=== PATIENT | female | born 1930 | race Caucasian/White ===

== ENCOUNTER 2018-04-01 06:45 | Emergency (ER) | payer MEDICARE | END 2018-04-01 08:40 | disposition home or self-care (01) | LOC: ER 06:45 ==

== ENCOUNTER → 2019-07-23 | Outpatient (CLI) | payer MEDICARE ==
[~2019-07-23] MED LIST: ACET-1697 PO; AMLO5TAB2 PO; ASPI-266 PO; CA C1TAB26 PO; CEFU500T5 PO; CEFU800T34; CLC500CT PO; CLOP75TA28 PO; CLPD75T PO; FAMO-119 PO; FAMO20TA73 PO; FURO40TA4 PO; KCL10CCR PO; LSNP20T PO; METO100T2 PO; MULT-856 PO; PROP160C2 PO; RECLAST; RECLAST IV; SIME80TA PO; TUMS PO; WARF2TAB PO; WARF2TAB6 PO; WRF2T PO
--- NOTE | 2019-07-23 12:42 | Diagnostic Imaging Report ---
PROCEDURE: US Thyroid. TECHNIQUE: Multiple real-time grayscale images were obtained of the thyroid in various projections. INDICATION: Left thyroid nodule. COMPARISON: No previous exam for comparison. FINDINGS: The right lobe measures 4.6 x 1.3 x 1.9 cm. There is a 4 x 4 mm hypoechoic solid nodule in the midportion. The left lobe measures 5 x 1.8 x 1.8 cm. There is a solid nodule which is well encapsulated in the lower pole with isoechoic and hypoechoic components. This measures 1.9 x 1.7 x 1.4 cm. This does show vascularity about the rim as well as scattered vascularity within the nodule with Doppler sampling. The isthmus measures 2 mm. No calcifications are seen. IMPRESSION: 1. Solid nodule in left lower pole of left lobe as described measuring 1.9 cm in greatest dimension. No previous exam for comparison. Depending on clinical concerns, either 6-month or 12-month ultrasound follow-up versus fine-needle aspiration. TI-RADS 3. Dictated by: Dictated on workstation # [id number]
== END ==
LOC: RAD 09:21
PROVIDERS: ATTEND Internal Medicine
DX: E04.1 Nontoxic single thyroid nodule (principal)
CPT/HCPCS: 76536

== ENCOUNTER → 2020-12-10 | Outpatient (CLI) | payer MEDICARE ==
--- NOTE | 2020-12-10 13:29 | Diagnostic Imaging Report ---
PROCEDURE: US Thyroid. TECHNIQUE: Multiple real-time grayscale images were obtained of the thyroid in various projections. INDICATION: Follow-up left thyroid nodule. COMPARISON: 07/23/2019. FINDINGS: Both thyroid lobes demonstrate smooth and homogenous background echotexture. Color flow Doppler demonstrates normal and symmetric vascularity bilaterally. The right lobe measures 4.8 cm in length , 1.3 cm AP, and 1.4 cm transverse. The left lobe measures 4.6 cm in length , 2.5 cm AP, and 2.0 cm transverse. The isthmus measures 0.3 cm. A solid isoechoic nodule is again seen in the inferior pole of the left lobe of the thyroid measuring 2.1 x 1.5 x 1.6 cm. There is internal vascularity within this nodule. No new nodules are seen within the thyroid. Impression: 1. Slight increase in size in the solid nodule within the left lobe of the thyroid. Based on size criteria, thyroid FNA is recommended; however, 12 month follow up with thyroid ultrasound could also be considered. 2. No new nodules are seen within the thyroid. Dictated by: Dictated on workstation # [id number]
== END ==
LOC: RAD 10:00
PROVIDERS: ATTEND Internal Medicine
DX: E04.1 Nontoxic single thyroid nodule (principal)
CPT/HCPCS: 76536

== ENCOUNTER → 2020-12-31 | Outpatient (CLI) | payer MEDICARE ==
[~2020-12-31] VITALS: Ht 162.6 cm; Wt 63.6 kg
[~2020-12-31] MED LIST changes: +LIDOCAINE 1% INJ 20 ML 20 ML VIAL INJ ONE
--- NOTE | 2020-12-31 12:32 | Diagnostic Imaging Report ---
INDICATION: Left lobe thyroid nodule. Patient presents for biopsy. Patient is brought to the procedure room placed on the table in the supine position. Ultrasound imaging of the left neck was performed to evaluate appropriate entry site. Left neck was then prepped and draped in usual sterile fashion. Small amount 1% lidocaine was utilized for local anesthesia. A total of 4 passes were made into the solid dominant mass left lobe of thyroid utilizing 25-gauge needles and fine-needle aspiration technique. A single pass was made with a Rotex needle and Rotex biopsy was performed. Dowell were removed and hemostasis was obtained. Patient tolerated the procedure well and left the department in stable condition. IMPRESSION: Successful ultrasound-guided fine-needle aspiration and Rotex biopsy of left lobe thyroid mass. Pathology results are currently pending. Dictated by: Dictated on workstation # [id number]
== END ==
LOC: RAD 11:00
PROVIDERS: ATTEND Otolaryngology Otolaryngology/Facial Plastic Surgery
DX: E04.1 Nontoxic single thyroid nodule (principal)
CPT/HCPCS: 10005

== ENCOUNTER → 2021-06-17 | Outpatient (CLI) | payer MEDICARE ==
[~2021-06-17] MED LIST changes: -LIDOCAINE 1% INJ 20 ML 20 ML VIAL INJ ONE
--- NOTE | 2021-06-17 08:55 | Diagnostic Imaging Report ---
EXAMINATION: Chest 2 view HISTORY: Cough, dyspnea, wheezing. COMPARISON: 04/01/2018 FINDINGS: Heart size and pulmonary vasculature are stable. Stable minimal right pleural effusion. No consolidation or pneumothorax. Degenerative changes of the thoracic spine. Osseous structures are otherwise intact. IMPRESSION: 1. Stable small right pleural effusion. No other acute radiographic abnormality in the chest. Dictated by: Dictated on workstation # [id number]
== END ==
LOC: RAD 08:21
PROVIDERS: ATTEND Nurse Practitioner Family
DX: J90 Pleural effusion, not elsewhere classified (principal)
CPT/HCPCS: 71046

== ENCOUNTER → 2021-07-15 | Outpatient (CLI) | payer MEDICARE ==
--- NOTE | 2021-07-15 17:10 | Diagnostic Imaging Report ---
PROCEDURE: US Thyroid. TECHNIQUE: Multiple real-time grayscale images were obtained of the thyroid in various projections. INDICATION: Follow-up of left lobe thyroid nodule. COMPARISON with ultrasound from 12/10/2020. FINDINGS: The right lobe measures 3.5 x 1.2 x 1.2 cm. The left lobe measures 4.3 x 1.8 x 1.8 cm. There is a solid slightly hypoechoic well-circumscribed nodule measuring 1.9 x 1.4 cm. There is no associated calcification. The isthmus appears normal. IMPRESSION: Solid oval hypoechoic nodule without calcification within the left lobe inferiorly. This is stable from previous exam. Would recommend continued annual ultrasound follow-up. TI-RADS 3. Dictated by: Dictated on workstation # [id number]
== END ==
LOC: RAD 12:30
PROVIDERS: ATTEND Otolaryngology Otolaryngology/Facial Plastic Surgery
DX: E04.1 Nontoxic single thyroid nodule (principal)
CPT/HCPCS: 76536

== ENCOUNTER 2022-03-31 07:59 | Emergency (ER) | payer MEDICARE ==
[~2022-03-31] VITALS: Ht 162 cm; Wt 57.0 kg
--- NOTE | 2022-03-31 08:33 | ED Neck-Back Pain/Injury ---
General Chief Complaint: Head/Cervical Problems Stated Complaint: STIFF NECK Nursing Triage Note: PT AMB TO [facility] 6 PT CO OF SEVERE NECK PAIN 10/10 FOR APPROX 9 DAYS, HAS BEEN SEEN BY HER DR. PT HAS HAD INJECTION AND IS TAKING MEDS. PT HAS KYPHOSIS NOTED Source of Information: Patient Exam Limitations: No Limitations History of Present Illness Date Seen by Provider: Mar 31, 2022 Time Seen by Provider: 08:17 Initial Comments Patient is an 89-year-old female who presents to the emergency room with a chief complaint of "stiff neck". She states she changed to a new pillow approximately 10 days ago. She states over the last 9 days she has developed increasingly sore neck, inability to turn her head. She saw the nurse practitioner at her primary care physician's office, Dr. Garcia, she had some "injections" that day that did not really help much and may be gave minimal relief for an hour or 2. She is taken Tylenol. She has used she states, almost every oosw-jfc-eyeqfgk muscle rub imaginable. She was prescribed some tizanidine but she states it makes her feel weak and dizzy like she is about to fall. She denies radiation of the pain into her arms, no numbness, tingling or weakness. She has had no direct trauma. She denies fevers or chills. She states her blood pressure has been "all over the place" due to her pain. She has not been sleeping well. No other complaints of illness or injury. Location: C-Spine Timing/Duration: Other (9 days) Severity: Severe Pain/Injury Location: Neck Radiation: Other (scalp) Method of Injury: Other (new pillow) Modifying Factors: Worse With Movement Associated Symptoms: muscle spasms Allergies and Home Medications Allergies Coded Allergies: promethazine (Unverified Allergy, Mild, NAUSEA, 08/05/14) atenolol (Verified Allergy, Unknown, 04/12/05) Uncoded Allergies: CODIENE (Allergy, Mild, NAUSEA, 08/05/14) Patient Home Medication List Home Medication List Reviewed: Yes Acetaminophen (Acetaminophen) 500 Mg Tablet, 500 MG PO BID PRN for PAIN, (Reported) Entered as Reported by: SANYA BEAN on 08/25/14 0822 Famotidine (Acid Control) 20 Mg Tablet, 20 MG PO BID, (Reported) Entered as Reported by: ANASTACIA ESTEVEZ on 09/22/14 08 Lisinopril (Zestril) 20 Mg Tab, 20 MG PO BID, (Reported) Entered as Reported by: BERONICA ADLER on 04/18/11 1359 Metoprolol Tartrate (Metoprolol Tartrate) 100 Mg Tablet, 100 MG PO BID, (Reported) Entered as Reported by: ANASTACIA ESTEVEZ on 09/22/14 08 Multivits W-Fe,Other Min/Lut (Centrum Silver Ultra Women Tab) 1 Each Tablet, 1 TAB PO DAILY, (Reported) Entered as Reported by: BERONICA ADLER on 04/18/11 1355 Potassium Chloride (Klor-Con 10) 10 Meq Tablet.sa, 10 MEQ PO EVERY OTHER DAY, (Reported) Entered as Reported by: ANASTACIA ESTEVEZ on 09/22/14 08 Warfarin Sod (Coumadin 2 Mg) 2 Mg Tab, 2 MG PO VARGAS,,,SA, (Reported) Entered as Reported by: BERONICA ADLER on 04/18/11 1407 Warfarin Sodium (Warfarin Sodium) 2 Mg Tablet, 3 MG PO MON,WED, FRI, (Reported) Entered as Reported by: ANASTACIA ESTEVEZ on 09/22/14 0821 [Reclast] , IV YEARLY, (Reported) Entered as Reported by: ANASTACIA ESTEVEZ on 09/22/14 0828 [Tums 750MG] , 750 MG PO BID, (Reported) Entered as Reported by: ANASTACIA ESTEVEZ on 08/05/14 0830 Review of Systems Constitutional: see HPI EENTM: no symptoms reported Respiratory: no symptoms reported Cardiovascular: no symptoms reported Gastrointestinal: no symptoms reported Genitourinary: no symptoms reported Musculoskeletal: muscle cramps, neck pain Skin: no symptoms reported All Other Systems Reviewed Negative Unless Noted: Yes Past Sctvsyr-Knivuf-Txlfjw Hx Patient Social History Tobacco Use?: No Substance use?: No Alcohol Use?: No Pt feels they are or have been: No Immunizations Up To Date Influenza Vaccine Up-to-Date: Yes; Up-to-Date First/Initial COVID19 Vaccinat: YES Second COVID19 Vaccination Gilles: YES Past Medical History Surgery/Hospitalization HX: AFIB, HTN, 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 STENT LEGS) Respiratory: No Cardiac: Yes Atrial Fibrillation, Hypertension Neurological: No Gastrointestinal: Yes Diverticulosis Musculoskeletal: No Endocrine: No Cancer: No Psychosocial: No Family Medical History No Pertinent Family Hx Physical Exam Vital Signs Vital Signs - First Documented 03/31/22 08:05 Temp 35.7 Pulse 81 Resp 18 B/P (MAP) 167/108 (127) Pulse Ox 96 Capillary Refill : Height, Weight, BMI Height: 5'5.00" Weight: 140lbs. 0.0oz. [id number]; 21.00 BMI Method:Stated General Appearance: WD/WN, Anxious, Mild Distress, Thin HEENT: PERRL/EOMI Neck: Normal Inspection, Supple, Other (tenderness suboccipital more right than left; no overlying erythema/abscess/lesion. decreased ROM (rotational and flex/ext) due to pain) Cardiovascular: Irregularly Irregular, Tachycardia (103) Respiratory: Lungs Clear, Normal Breath Sounds, No Accessory Muscle Use, No Respiratory Distress Extremity: Normal Range of Motion Neurologic/Psychiatric: Alert, Oriented x3, No Motor/Sensory Deficits, Normal Mood/Affect Skin: Normal Color, Warm/Dry Procedures/Interventions Progress Suboccipital right paraspinous landmarks identified. Patient's skin prepped with alcohol swab. 2% plain lidocaine, 3ml and 0.5% bupivicaine, 3ml used to infiltrate suboccipital area. a bit of "dry needling" also done in this area. Patient tolerated the procedure well. She identified the right side of the suboccipital area as the area of most intense pain. No bleeding post injection. Progress/Results/Core Measures Results/Orders My Orders Orders - JAMES LARSEN MD Oxycodone Immediate Rel Tablet (Oxyir Ta (03/31/22 09:00) Lidocaine 1% Inj 20 Ml (Xylocaine 1% Inj (03/31/22 09:00) Bupivacaine 0.5% Injection (Sensorcaine (03/31/22 09:00) Medications Given in ED Current Medications Medications Dose Ordered Sig/Eulogio Route Start Time Stop Time Status Last Admin Dose Admin Bupivacaine HCl 30 ml ONCE ONCE INJ 03/31/22 09:00 03/31/22 09:01 DC 03/31/22 09:15 30 ML Lidocaine HCl 20 ml ONCE ONCE INJ 03/31/22 09:00 03/31/22 09:01 DC 03/31/22 09:15 20 ML Oxycodone HCl 2.5 mg ONCE ONCE PO 03/31/22 09:00 03/31/22 09:01 DC 03/31/22 09:08 2.5 MG Vital Signs/I&O 03/31/22 08:05 Temp 35.7 Pulse 81 Resp 18 B/P (MAP) 167/108 (127) Pulse Ox 96 Blood Pressure Mean: 127 Progress Progress Note : Time: 09:56 Progress Note Patient seen and examined, 89-year-old female with suboccipital cervical spine pain. Patient attributes to sleeping on a "firm" pillow. She has been using tizanidine without relief and actually had some adverse medication reactions to the tizanidine. Patient was given 2.5 mg of immediate release oxycodone. 1% plain lidocaine and half percent bupivacaine used to infiltrate the area. A little bit of dry needling was also done in this area to help facilitate muscle relaxation. Patient's physical exam is unremarkable for any acute radicular findings. She has no numbness tingling or weakness in any of her extremities. No history of trauma. No indication for advanced imaging. She is extremely kyphotic. Patient tolerated trigger point injection well. Monitored for approximately 20 minutes postinjection. No adverse reactions noted. Will send a prescription for a small amount of immediate release oxycodone to [place] for her. Went over dosing of this medication in detail. Cautioned her on effects of narcotic medications. Recommended close follow-up with her primary care physician and return precautions were provided. Departure Impression Primary Impression: Cervicalgia of ywcqvhje-isetdfg-vzoir region Disposition: 01 HOME, SELF-CARE Condition: Improved Departure-Patient Inst. Decision time for Depature: 09:58 Referrals: RUBEN GARCIA MD (PCP/Family) Primary Care Physician Patient Instructions: Neck Pain ED Add. Discharge Instructions: You can take btsi-ffc-hijiuvv extra strength Tylenol, 2 tablets every 6 hours as needed for pain. IN ADDITION, you can use mlmo-nne-xdfpbnl "Voltaren gel", also known as "diclofenac gel". Apply this sparingly to the area of pain on the back of your neck. Please follow packaging instructions. I have sent a prescription for oxycodone 5 mg tablets to [place] pharmacy. Please split these in half and you can take 1 every 6 hours as needed for severe pain. Gentle stretching exercises, to the best of your ability will also help improve your pain. Please call Dr. Garcia's office today for a follow-up appointment early next week. Stop taking the tizanidine Return to the emergency department for any new, concerning or emergent complaints. Scripts Oxycodone HCl/Acetaminophen (Oxycodone-Acetaminophen 5-325) 5 Mg-325 Mg Tablet 2.5 MG PO Q6H PRN for PAIN-MODERATE MDD 6, #10 TAB 0 Refills Prov: JAMES LARSEN MD 03/31/22 Copy Copies To 1: RUBEN GARCIA MD, KATHRYN M MD Mar 31, 2022 08:33
[2022-03-31] MEDS ORDERED: BUPIVACAINE 0.5% 30 ML (SENSORCAINE) VIAL INJ ONE (09:00)
[2022-03-31] MEDS ORDERED: LIDOCAINE 1% INJ 20 ML VIAL INJ ONE (09:00)
[2022-03-31] MEDS ORDERED: OXYC1TAB11 PO (10:01)
[2022-03-31 10:39] VITALS: BP 142/92
== END 2022-03-31 10:30 | disposition home or self-care (01) ==
LOC: EDUNIT# 07:59 → ER 08:01
DX: M54.2 Cervicalgia (principal); Z88.5 Allergy status to narcotic agent
CPT/HCPCS: 99283